=== PATIENT | female | born 1940 | race Caucasian/White ===

== ENCOUNTER → 2016-08-30 | Outpatient (CLI) | payer OTHER ==
[~2016-08-30] MED LIST: DLN100 PO; SYN150 PO; TRIATAB3 PO; XLTOPS OP
[2016-09-02 11:18] LABS: THYROGLOBULIN <0.1 NG/ML (2.8-40.9)
== END | disposition home or self-care (01) ==
LOC: C.LABPBG 15:03
PROVIDERS: ATTEND Internal Medicine
DX: C73 Malignant neoplasm of thyroid gland (principal); E89.0 Postprocedural hypothyroidism

== ENCOUNTER → 2017-08-23 | Outpatient (CLI) | payer OTHER | END | disposition home or self-care (01) | LOC: C.LABPBG 14:12 | PROVIDERS: ATTEND Internal Medicine Endocrinology, Diabetes & Metabolism | DX: E89.0 Postprocedural hypothyroidism (principal); C73 Malignant neoplasm of thyroid gland ==